=== PATIENT | female | born 1970 | race Caucasian/White ===

== ENCOUNTER 2018-11-05 10:37 | Day surgery (SDC) | payer BC ==
[~2018-11-05 10:37] MED LIST: Sodium Chloride 0.9% 10 ML Syringe FLUSH PRN
[2018-11-05] MEDS: Sodium Chloride 0.9% 1,000 ML IV SCH (11:20)
[2018-11-05] MEDS ORDERED: Propofol 200 MG/20 ML SDV ONE (11:40)
[2018-11-05] MEDS ORDERED: Midazolam 1 MG/ML 2 ML SDV ONE (11:40)
--- NOTE | 2018-11-05 12:33 | PCM.PN ---
- General Info Date of Service: 11/05/18 - Review of Systems Systems Review Comment:: 48-year-old female with history of colon polyps and family history of colon cancer in her father here for colonoscopy. She did have some diarrhea with blood in her stool recently as well. She is medically stable to proceed today. Her recent history and physical is reviewed and no significant changes are noted. I have discussed the proposed colonoscopy with the patient. She agrees to proceed accepting risks. - Patient Data Vitals - Most Recent: Last Vital Signs Temp 97.4 F 11/05/18 10:56 Pulse 88 11/05/18 10:56 Resp 16 11/05/18 10:56 BP 129/87 11/05/18 10:56 Pulse Ox 96 11/05/18 10:56 Weight - Most Recent: 77.111 kg Lab Results Last 24 Hours: Laboratory Results - last 24 hr 11/05/18 Range/Units 11:14 POC Glucose 147 H (74-106) mg/dl Med Orders - Current: Current Medications Sodium Chloride (Normal Saline) 1,000 mls @ 30 mls/hr IV ASDIRECTED DIEGO Last Admin: 11/05/18 11:20 Dose: 30 mls/hr Sodium Chloride (Saline Flush) 10 ml FLUSH Q8HR PRN PRN Reason: keep vein open - Problem List Review Problem List Initiated/Reviewed/Updated: Yes - My Orders Last 24 Hours: My Active Orders 11/05/18 10:30 Blood Glucose Check, Bedside [RC] ONETIME Patient to Empty Bladder [RC] ASDIRECTED Peripheral IV Care [RC] . DIRECTED Verify Patient Consent Obtain [RC] ASDIRECTED Vital Signs [RC] PER UNIT ROUTINE Sodium Chloride 0.9% [Normal Saline] 1,000 ml IV ASDIRECTED Sodium Chloride 0.9% [Saline Flush] 10 ml FLUSH Q8HR PRN Peripheral IV Insertion Adult [OM.PC] Routine 11/05/18 Breakfast Nothing Per Oral Diet [DIET] - Assessment Assessment:: History of colon polyps Rectal bleeding Family history of colon cancer - Plan Plan:: Colonoscopy
[2018-11-05] MEDS ORDERED: Midazolam 1 MG/ML 2 ML SDV IV ONE (12:43)
[2018-11-05] MEDS ORDERED: Propofol 200 MG/20 ML SDV IV ONE (12:43)
--- NOTE | 2018-11-05 13:33 | PCM.OPNOTE ---
- General Post-Op/Procedure Note Date of Surgery/Procedure: 11/05/18 Operative Procedure(s): Colonoscopy Findings: Moderate Sigmoid Diverticulosis without visible acute inflammation Small external hemorrhoids Pre Op Diagnosis: History of rectal bleeding and history of colon polyps Post-Op Diagnosis: Diverticulosis. hemorrhoids Anesthesia Technique: MAC Primary Surgeon: Gordon Middleton Pathology: none Output, Urine Amount: 0 EBL in mLs: 0 Complications: None Condition: Good
[2018-11-05 14:51] VITALS: BP 143/89
--- NOTE | 2018-11-05 16:19 | OR ---
DATE OF SURGERY: 11/05/2018 SURGEON: Gordon Middleton MD PREOPERATIVE DIAGNOSIS: History of colon polyps and rectal bleeding. POSTOPERATIVE DIAGNOSIS: Sigmoid diverticulosis and external hemorrhoids. OPERATION PERFORMED: Colonoscopy. INDICATIONS FOR SURGERY: This 48-year-old female is referred for colonoscopy. She has had some recent episodes of rectal bleeding after transient symptoms of diarrhea. She also has a known personal history of colon polyps as well as a family history of colon cancer. FINDINGS: No bleeding is seen during today's exam. The patient does have a moderate degree of diverticulosis in the sigmoid region. This does not appear to be acutely inflamed at this time. There are also small external hemorrhoids noted. The remainder of the patient's colon appears normal. DESCRIPTION OF PROCEDURE: The patient was taken to the operating room. She was given intravenous sedation and with her in the left lateral decubitus position, digital rectal exam was performed showing no rectal masses. The Olympus colonoscope was inserted into the rectum. Retroflexed examination of the rectal canal was performed. The scope was then carefully advanced under direct visualization through the entire length of the colon until the cecum was reached. In order to reach the cecum, some hand pressure was required, but the cecum was able to be safely entered. The normal internal cecal anatomy including the appendiceal orifice and ileocecal valve were viewed and the light was noted to transilluminate the abdominal wall in the right lower quadrant. After examining the cecum, the scope was slowly withdrawn, sequentially re- examining the colonic segments. Once the entire colon and rectum had been fully examined, the scope was removed, and the patient was taken from the operating room in satisfactory condition. ESTIMATED BLOOD LOSS: Zero. COMPLICATIONS: None. PROGNOSIS: Good. /[id number]/MODL
== END 2018-11-05 14:20 | disposition home or self-care (01) ==
LOC: KA.SDS 10:37
PROVIDERS: ATTEND Surgery
DX: K57.31 Diverticulosis of large intestine without perforation or abscess with bleeding (principal); K64.4 Residual hemorrhoidal skin tags; Z86.010 Personal history of colon polyps; F17.210 Nicotine dependence, cigarettes, uncomplicated; K21.9 Gastro-esophageal reflux disease without esophagitis; E11.9 Type 2 diabetes mellitus without complications; Z80.0 Family history of malignant neoplasm of digestive organs; Z88.5 Allergy status to narcotic agent; Z88.6 Allergy status to analgesic agent; Z79.82 Long term (current) use of aspirin; Z79.84 Long term (current) use of oral hypoglycemic drugs; Z79.3 Long term (current) use of hormonal contraceptives; Z79.899 Other long term (current) drug therapy
CPT/HCPCS: 82962; J2250; J2704; J7030

== ENCOUNTER 2019-07-22 10:34 | Day surgery (SDC) | payer BC ==
[2019-07-22] MEDS ORDERED: Lidocaine 2% 5 ML SDV ONE (11:11)
[2019-07-22] MEDS ORDERED: Propofol 200 MG/20 ML SDV ONE (11:11)
[2019-07-22] MEDS ORDERED: Midazolam 1 MG/ML 2 ML SDV ONE (11:11)
[2019-07-22] MEDS: Sodium Chloride 0.9% 1,000 ML IV SCH (11:15)
--- NOTE | 2019-07-22 12:09 | PCM.PN ---
- General Info Date of Service: 07/22/19 - Review of Systems Systems Review Comment:: 48-year-old female with history of intermittent nausea and vomiting comes today for diagnostic upper endoscopy. Recent gallbladder work-up was negative. Etiology for her symptoms is unclear at this time. She is medically stable to proceed today. Her recent and physical is reviewed and no significant changes are noted. I have again discussed the proposed upper endoscopy with the patient. She agrees to proceed excepting risks. - Patient Data Vitals - Most Recent: Last Vital Signs Temp 97.1 F 07/22/19 10:30 Pulse 91 07/22/19 10:30 Resp 16 07/22/19 10:30 BP 163/94 H 07/22/19 10:30 Pulse Ox 96 07/22/19 10:30 Weight - Most Recent: 81.647 kg Lab Results Last 24 Hours: Laboratory Results - last 24 hr 07/22/19 Range/Units 11:20 POC Glucose 134 H (74-106) mg/dl Med Orders - Current: Current Medications Sodium Chloride (Normal Saline) 1,000 mls @ 50 mls/hr IV ASDIRECTED DIEGO Sodium Chloride (Saline Flush) 10 ml FLUSH Q8HR PRN PRN Reason: keep vein open Sepsis Event Note - Focused Exam Vital Signs: Vital Signs Temp Pulse Resp BP Pulse Ox 07/22/19 10:30 97.1 F 91 16 163/94 H 96 Date Exam was Performed: 07/22/19 Time Exam was Performed: 12:07 - Problem List Review Problem List Initiated/Reviewed/Updated: Yes - My Orders Last 24 Hours: My Active Orders 07/21/19 14:43 Resuscitation Status Routine 07/22/19 10:30 Blood Glucose Check, Bedside [RC] UPON Peripheral IV Care [RC] . DIRECTED Vital Signs [RC] PER UNIT ROUTINE Sodium Chloride 0.9% [Normal Saline] 1,000 ml IV ASDIRECTED Sodium Chloride 0.9% [Saline Flush] 10 ml FLUSH Q8HR PRN Peripheral IV Insertion Adult [OM.PC] Routine 07/22/19 11:30 Patient to Empty Bladder [RC] ASDIRECTED 07/22/19 12:00 Verify Patient Consent Obtain [RC] ASDIRECTED 07/22/19 Breakfast Nothing Per Oral Diet [DIET] - Assessment Assessment:: Nausea and vomiting - Plan Plan:: EGD
[2019-07-22] MEDS ORDERED: Midazolam 1 MG/ML 2 ML SDV IV ONE (12:17)
[2019-07-22] MEDS ORDERED: Propofol 200 MG/20 ML SDV IV ONE (12:17)
--- NOTE | 2019-07-22 12:38 | PCM.OPNOTE ---
- General Post-Op/Procedure Note Date of Surgery/Procedure: 07/22/19 Operative Procedure(s): EGD with Biopsy Findings: Normal appearing Upper Endoscopy Pre Op Diagnosis: History of Nausea and Vomiting Post-Op Diagnosis: Same Anesthesia Technique: MAC Primary Surgeon: Gordon Middleton Pathology: Biopsies of Duodenum and upper and lower stomach EBL in mLs: 3 Complications: None Condition: Good
[2019-07-22 15:33] VITALS: BP 136/85; PULSE 77
--- NOTE | 2019-07-22 19:21 | OR ---
DATE OF SURGERY: 07/22/2019 SURGEON: Gordon Middleton MD PREOPERATIVE DIAGNOSIS: Unexplained nausea and vomiting. POSTOPERATIVE DIAGNOSIS: Normal upper endoscopy. OPERATION PERFORMED: Esophagogastroduodenoscopy with biopsy. INDICATIONS FOR SURGERY: This 48-year-old female has had persistent symptoms of nausea and vomiting. Recent gallbladder workup was negative. She comes for diagnostic upper endoscopy. FINDINGS: Structures viewed on upper endoscopy appeared normal. The esophagus appeared normal without signs of inflammation or stenosis. The gastric mucosa also appeared normal. No hyperemia or ulcers were seen. The duodenum to the 4th portion also appeared normal without any visible signs of inflammation or ulceration. DESCRIPTION OF PROCEDURE: The patient was taken to the operating room. She was given intravenous sedation and with her in the left lateral decubitus position, the Olympus gastroscope was advanced through the mouth guard into the oral cavity. Under direct visualization, the scope was then carefully advanced through the oropharynx and into the esophagus. This scope was advanced down through the esophagus, stomach, and into the duodenum where examination to the 4th portion was performed. Because of the patient's symptoms, random biopsies of the duodenum were taken. After examining the duodenum, the scope was withdrawn back into the stomach where full examination including retroflexed examination of the fundus was performed. Random biopsies were taken of the antrum as well as the proximal stomach mucosa to evaluate for H pylori and other pathology. After examining the stomach, the GE junction and esophagus were then carefully re-examined as the scope was withdrawn. The scope was removed and the patient was taken from the operating room in satisfactory condition. ESTIMATED BLOOD LOSS: 3 mL. COMPLICATIONS: None. PROGNOSIS: Good. /[id number]/MODL
== END 2019-07-22 14:00 | disposition home or self-care (01) ==
LOC: KA.SDS 10:34
PROVIDERS: ATTEND Surgery
DX: K29.50 Unspecified chronic gastritis without bleeding (principal); F17.210 Nicotine dependence, cigarettes, uncomplicated; E11.9 Type 2 diabetes mellitus without complications; Z87.19 Personal history of other diseases of the digestive system; Z88.5 Allergy status to narcotic agent; Z88.8 Allergy status to other drugs, medicaments and biological substances; Z79.82 Long term (current) use of aspirin; Z98.890 Other specified postprocedural states; Z80.0 Family history of malignant neoplasm of digestive organs; Z79.84 Long term (current) use of oral hypoglycemic drugs; Z79.899 Other long term (current) drug therapy
CPT/HCPCS: 00731; 82962; J2250; J2704; J7030

== ENCOUNTER 2021-05-26 17:10 | Emergency (ER) | payer BC ==
[2021-05-26 17:26] VITALS: PULSE 90
[2021-05-26] MEDS ORDERED: HYDROmorphone 1 MG/ML Syringe IVPUSH ONE ×2 (17:46→19:49)
[2021-05-26] MEDS ORDERED: Promethazine 12.5 MG in Sodium Chloride 0.9% 100 ML IV PRN (17:47)
[2021-05-26] MEDS ORDERED: Sodium Chloride 0.9% 1,000 ML IV ONE (17:49)
[2021-05-26] MEDS ORDERED: Iopamidol 755 Mg/ML 75 ML Bottle IVPUSH ONE (17:58)
[2021-05-26] MEDS ORDERED: Sodium Chloride 0.9% 50 ML IV SCH (18:00)
[2021-05-26 18:03] LABS: ANION GAP 15.4 mmol/L (5-15); CHLORIDE,CL 101 mmol/L (98-107); SODIUM,NA 138 mmol/L (136-145)
[2021-05-26] MEDS ORDERED: Piperacillin/Tazobactam/Dext 3.375 GM in Premix Bag 1 BAG IV ONE (19:32)
[2021-05-26] MEDS ORDERED: HYDROmorphone 1 MG/ML Syringe ONE (19:40)
[2021-05-26 20:13] VITALS: BP 149/98
[2021-05-26] MEDS ORDERED: Sodium Chloride 0.9% 1,000 ML ONE (20:16)
== END 2021-05-26 20:20 ==
LOC: KA.ED 17:10
DX: K35.30 Acute appendicitis with localized peritonitis, without perforation or gangrene (principal); I10 Essential (primary) hypertension; E11.9 Type 2 diabetes mellitus without complications; Z88.5 Allergy status to narcotic agent; Z79.82 Long term (current) use of aspirin; Z79.84 Long term (current) use of oral hypoglycemic drugs; Z79.899 Other long term (current) drug therapy; Z20.822 Contact with and (suspected) exposure to COVID-19
CPT/HCPCS: 36415; 74177; 80053; 81001; 85025; 96374; 96375; 96376; 99285-25; J1170; J2543; J3360; J7030; Q9967; U0002

== ENCOUNTER 2024-10-24 18:47 | Emergency (ER) | payer BC ==
[2024-10-24] MEDS ORDERED: Sodium Chloride 0.9% 10 ML Syringe FLUSH PRN (19:21)
[2024-10-24] MEDS: Sodium Chloride 0.9% 1,000 ML IV ONE (19:30)
[2024-10-24 19:35] LABS: EOSINOPHILS ABSOLUTE AUTO 0.01 10^3/uL (0.10-0.30); EOSINOPHILS PERCENT AUTO 0.1 % (1.0-3.0); HEMATOCRIT 39.9 % (37.0-47.0); HEMOGLOBIN 13.5 g/dL (12.0-16.0); IMMATURE GRAN ABSOLUTE AUTO 0.11 10^3/uL (0.00-0.04); LYMPHOCYTES ABSOLUTE AUTO 1.26 10^3/uL (1.00-4.00); LYMPHOCYTES PERCENT AUTO 11.8 % (20.0-40.0); MEAN CORPUSCULAR HEMOGLOBIN 31.5 pg (27.0-31.0); MEAN CORPUSCULAR HGB CONC 33.8 g/dL (32.0-36.0); MEAN PLATELET VOLUME 8.9 fL (7.4-10.4); MONOCYTES ABSOLUTE AUTO 0.48 10^3/uL (0.10-0.80); MONOCYTES PERCENT AUTO 4.5 % (2.0-8.0); NEUTROPHILS ABSOLUTE AUTO 8.86 10^3/uL (2.50-7.00); NEUTROPHILS PERCENT AUTO 82.6 % (50.0-70.0); PLATELET COUNT,PLT 387 10^3/uL (150-400); RED BLOOD CELL COUNT 4.29 10^6/uL (3.80-5.50); WHITE BLOOD CELL COUNT,WBC 10.72 10^3/uL (5.00-10.00)
[2024-10-24 19:43] LABS: APPEARANCE,URINE CLEAR (CLEAR); BILIRUBIN,URINE SMALL (NEGATIVE); COLOR,URINE YELLOW (YELLOW); GLUCOSE,URINE NEGATIVE (NEGATIVE); KETONES,URINE NEGATIVE (NEGATIVE); LEUKOCYTE ESTERASE,URINE TRACE (NEGATIVE); NITRITE,URINE NEGATIVE (NEGATIVE); OCCULT BLOOD,URINE NEGATIVE (NEGATIVE); PH,URINE 5.5 (5.0-9.0); PROTEIN,URINE 30 mg/dL (NEGATIVE); UROBILINOGEN,URINE 0.2 E.U./dL (0.2-1.0)
[2024-10-24 19:46] LABS: BACTERIA,URINE FEW /HPF (NONE TO FEW); EPITHELIAL CELLS,URINE FEW /LPF; OTHER CRYSTALS,URINE RARE /HPF; RBC,URINE 0-5 /HPF (0-5)
[2024-10-24 19:51] LABS: ALANINE AMINOTRANSFERASE,ALT 55 U/L (14-63); ALBUMIN 3.54 g/dL (3.40-5.00); ALKALINE PHOSPHATASE 32 U/L (46-116); ANION GAP 17.6 mmol/L (5-15); ASPARTATE AMNIOTRANSFERASE,AST 43 U/L (15-37); BILIRUBIN TOTAL 0.6 mg/dL (0.2-1.0); BLOOD UREA NITROGEN,BUN 37 mg/dL (7-18); C-REACTIVE PROTEIN < 0.50 mg/dL (0.00-0.50); CALCIUM 9.2 mg/dL (8.7-10.3); CARBON DIOXIDE,CO2 23.1 mmol/L (21.0-32.0); CHLORIDE,CL 99 mmol/L (98-107); CREATININE 1.49 mg/dL (0.51-1.17); EST CRCL DRUG DOSING (CG) 38.39 mL/min; ESTIMATED GFR 41 mL/min (>=60); GLUCOSE RANDOM 191 mg/dL (70-140); POTASSIUM,K 4.7 mmol/L (3.5-5.1); PROTEIN TOTAL,TP 8.5 g/dL (6.4-8.2); SODIUM,NA 135 mmol/L (136-145)
[2024-10-24 21:06] VITALS: BP 104/70; PULSE 89
[2024-10-24] MEDS: Acetaminophen/HYDROcodone 325-10 MG Tab PO ONE (21:06)
[2024-10-24] MEDS: Ondansetron 4 MG/2 ML SDV IVPUSH ONE (21:07)
[2024-10-24] MEDS: LORazepam 2 MG/ML SDV IVPUSH ONE (21:08)
[2024-10-24] MEDS: Sodium Chloride 0.9% 1,000 ML IV SCH (21:08)
== END 2024-10-24 21:39 ==
LOC: KA.ED 18:47
DX: N17.9 Acute kidney failure, unspecified (principal); R74.02 Elevation of levels of lactic acid dehydrogenase [LDH]; M54.9 Dorsalgia, unspecified; G89.29 Other chronic pain; D84.9 Immunodeficiency, unspecified; E86.0 Dehydration; I10 Essential (primary) hypertension; E11.9 Type 2 diabetes mellitus without complications; Z79.84 Long term (current) use of oral hypoglycemic drugs; Z79.4 Long term (current) use of insulin; Z79.899 Other long term (current) drug therapy; Z88.5 Allergy status to narcotic agent
CPT/HCPCS: 80053; 81001; 83605; 85025; 86140; 87086; 96361; 96374; 96375; 99284; 99285-25; A9270-GY; J2060; J2405; J7030